=== PATIENT | female | born 1970 | race Hispanic/Latino ===

== ENCOUNTER 2016-09-02 05:55 | Emergency (ER) | payer SELFPAY ==
[~2016-09-02] VITALS: Ht 165.1 cm; Wt 74.9 kg
[2016-09-02 07:18] LABS: EOSINOPHIL (%) 0.3 % (0-5); HEMATOCRIT 37.9 % (36.0-46.0); IMMATURE GRANULOCYTE (%) 0.3 % (0.0-0.7); INSTRUMENT ABS NEUTROPHIL CT 9.7 K/uL; LYMPHOCYTE COUNT 1.2 K/uL (1.0-2.8); MCH 30.8 PG (29.0-34.0); MCHC 33.2 G/DL (30.0-36.0); MCV 92.7 FL (83-99); MEAN PLAT.VOLUME 9.9 uM^3 (9.5-12.4); MONOCYTE (%) 4.4 % (3-12); MONOCYTE COUNT 0.5 K/uL (0-0.8); NEUTROPHIL (%) 84.2 % (45-76); NEUTROPHIL COUNT 9.7 K/uL (1.8-6.4); PLATELET COUNT 346 K/uL (156-360); RBC DIS.WIDTH-CV 13.2 % (11.8-14.6); RBC DIS.WIDTH-SD 44.1 % (39-53); RED BLOOD COUNT 4.09 M/uL (3.80-5.20); WHITE BLOOD COUNT 11.5 K/uL (4.1-10.2)
[2016-09-02 07:25] LABS: CHLORIDE 110 mEq/L (99-109); POTASSIUM 3.7 mEq/L (3.7-5.4); SODIUM 139 mEq/L (136-147)
[2016-09-02 07:27] LABS: GLUCOSE 115 mg/dL (70-99)
[2016-09-02 07:29] LABS: ANION GAP 11 MEQ/L (2-14)
[2016-09-02 07:31] LABS: GFR ESTIMATE (CALCULATED) > 59 mL/min/
[2016-09-02 07:32] LABS: UREA NITROGEN (BUN) 10 mg/dL (9-23)
[2016-09-02 10:00] VITALS: BP 131/93
[2016-09-02] MEDS ORDERED: LISINOPRIL5 MG PO (10:05)
== END 2016-09-02 10:10 | disposition home or self-care (01) ==
LOC: EME 05:55
PROVIDERS: Emergency Medicine
DX: S20.319A Abrasion of unspecified front wall of thorax, initial encounter (principal); S20.219A Contusion of unspecified front wall of thorax, initial encounter; S30.0XXA Contusion of lower back and pelvis, initial encounter; Y04.2XXA Assault by strike against or bumped into by another person, initial encounter; R10.30 Lower abdominal pain, unspecified; R51 Headache; I10 Essential (primary) hypertension; F17.200 Nicotine dependence, unspecified, uncomplicated
CPT/HCPCS: 70450; 71020; 72132; 74177; 80048; 85025; 99281; 99285; J1885; J7030